=== PATIENT | female | born 1965 | race Caucasian/White ===

== ENCOUNTER 2019-05-16 20:30 | Outpatient (CLI) | payer OTHER | END 2019-05-16 20:31 | disposition home or self-care (01) | LOC: SLEEPLAB 20:30 | PROVIDERS: ATTEND Family Medicine | DX: G47.33 Obstructive sleep apnea (adult) (pediatric) (principal); R53.83 Other fatigue; K21.9 Gastro-esophageal reflux disease without esophagitis | CPT/HCPCS: 95810 ==

== ENCOUNTER 2019-06-20 19:30 | Outpatient (CLI) | payer OTHER | END 2019-06-20 19:31 | disposition home or self-care (01) | LOC: SLEEPLAB 19:30 | PROVIDERS: ATTEND Family Medicine | DX: G47.33 Obstructive sleep apnea (adult) (pediatric) (principal); R53.83 Other fatigue; G25.9 Extrapyramidal and movement disorder, unspecified | CPT/HCPCS: 95811 ==